=== PATIENT | female | born 1940 | race Native Hawaiian/Other Pacific Islander ===

== ENCOUNTER 2018-11-16 20:44 | Inpatient (IN) | payer OTHER ==
[~2018-11-16] VITALS: Ht 157.5 cm; Wt 107.5 kg
[2018-11-16 20:59] VITALS: Ht 157.5 cm; Wt 107.5 kg
--- NOTE | 2018-11-16 21:25 | NUR ---
X-RAY COMPLETED AT BEDSIDE.
[2018-11-16 21:33] LABS: BASOPHIL % 0.5 % (0-2); PLATELET COUNT 214 x10^3mcL (130-400); RED CELL DISTRIBUTION WIDTH 13.5 % (11.5-14.5)
[2018-11-16 21:42] LABS: CALCIUM 9.2 mg/dL (8.5-10.1); CARBON DIOXIDE 25.9 mmol/L (21-32); CHLORIDE SERUM 102 mmol/L (98-107); CREATININE SERUM 3.1 mg/dL (0.6-1.0); GLUCOSE SERUM 255 mg/dL (74-106); SODIUM SERUM 138 mmol/L (136-145)
--- NOTE | 2018-11-16 21:45 | NUR ---
PT AWARE OF NEEDED URINE SPECIMEN.
[2018-11-16 21:59] LABS: ALBUMIN 3.3 g/dL (3.4-5.0); ALKALINE PHOSPHATASE 77 U/L (46-116); ALT/SGPT 16 U/L (14-59); AST/SGOT 17 U/L (15-37); BILIRUBIN TOTAL 0.48 mg/dL (0.20-1.00); LIPASE 275 IU/L (73-393); TOTAL PROTEIN, SERUM 7.3 g/dL (6.4-8.2)
--- NOTE | 2018-11-16 22:24 | NUR ---
ASPIRIN 325MG PO ADMINISTERED PER MD ORDER. WATER GIVEN TO PT PER PT REQUEST.
--- NOTE | 2018-11-16 22:25 | NUR ---
PT AMBULATING TO RESTROOM W/ HELP FROM DAUGHTER TO ATTEMPT TO PROVIDE URINE SPECIMEN
--- NOTE | 2018-11-16 22:37 | NUR ---
PT PLACED ON [employer]PERVISOR. BB BLOCK NOTED. MD MADE AWARE. WILL CONTINUE TO MONITOR.
--- NOTE | 2018-11-16 23:13 | NUR ---
PT AAOX4, VSS, SPEAKS IN FULL CLEAR SENTENCES, BREATHING EASY AND UNLABORED. CONTINUES TO DENY CHEST PAIN AT THIS TIME. PT IN NO OBVIOUS DISTRESS. WILL CONTINUE TO MONITOR.
--- NOTE | 2018-11-16 23:57 | NUR ---
PT ADMITTED. REPORT CALLED TO JIA BOB. OPPORTUNITY GIVEN TO ASK QUESTIONS. PT BEING TRANSPORTED TO FLOOR BY LISBETH.
[2018-11-17] MEDS ORDERED: PRAVASTATIN SOD40 M1 PO
[2018-11-17] MEDS ORDERED: ISOSORBIDE MONO30 MG PO
[2018-11-17] MEDS ORDERED: LASIX20 MG PO (00:01)
[2018-11-17] MEDS ORDERED: HYDRALAZINE HCL25 MG PO (00:01)
[2018-11-17] MEDS ORDERED: METOPROLOL SUC200 M2 PO (00:01)
[2018-11-17] MEDS ORDERED: NOVOLOG FLEX100 U/M1 SC (00:02)
[2018-11-17] MEDS ORDERED: ELIQUIS5 MG PO (00:02)
[2018-11-17] MEDS ORDERED: ASPIR 8181 MG PO (00:02)
[2018-11-17] MEDS ORDERED: LANTUS SOLOS100 U/M1 SQ (00:03)
[2018-11-17] MEDS ORDERED: LOVAZA1 G1 (00:03)
--- NOTE | 2018-11-17 00:07 | NUR ---
PT ADMITTED (TELE, ROOM#[id number]). PT BEING TRANSPORTED TO FLOOR BY RN.
[2018-11-17 00:33] VITALS: BP 169/90
[2018-11-17 00:35] LABS: MAGNESIUM 1.9 mg/dL (1.8-2.4)
[2018-11-17 00:40] LABS: CHOLESTEROL/HDL RATIO 1.8
--- NOTE | 2018-11-17 01:06 | NUR ---
RECEIVED PT FROM ER, PT ADMIT FOR RENAL FAILURE, ELEVATED TROPONIN, PT IS A/O X4, VERBAL RESPONSIVE, ABLE TO TELL WHAT SHE NEEDS. LUNG SOUND CLEAR BILATERAL, NO COUGH, NO SOB, PT IS ON TELE 15, A.FIB, DENY ANY CHEST PAIN OR DISCOMFORT, BOWEL SOUND PRESENT ALL 4 QUADRANTS, NO DISTENTION, NO TENDER. PEDAL PULSE PRESENT BOTH FEET, NO EDEMA, IV AT RIGHT HAND, NO LEAKING, NO INFILTRATION. ALL ADLS ASSIST, ALL NEED MET, CALL LIGHT IN REACH, WILL CONTINUE TO MONITOR.
[2018-11-17 01:45] LABS: microscopic required? YES; urine erythrocyte NEGATIVE (NEGATIVE)
[2018-11-17 01:58] LABS: AMPHETAMINE QUAL UR NONE DETECTED (See below)
[2018-11-17 05:08] VITALS: BP 123/69
[2018-11-17 06:34] LABS: BASOPHIL % 0.6 % (0-2); PLATELET COUNT 193 x10^3mcL (130-400); RED CELL DISTRIBUTION WIDTH 13.4 % (11.5-14.5)
--- NOTE | 2018-11-17 06:52 | NUR ---
PT SLEPT WELL DURING SHIFT. NO SOB ON ROOM AIR. LEFT FLANK PAIN TOLERABLE. REFUSED PAIN MEDICATION. NO DISTRESS NOTED. SAFETY MEASURES MAINTAINED. CALL LIGHT WITHIN REACH. DAUGHTER AT BEDSIDE. WILL ENDORSE CONTINUITY OF CARE TO ONCOMING RN.
--- NOTE | 2018-11-17 08:00 | NUR ---
SHIFT ASSESSMENT DONE. PAITENT A/A/OX4; CLEAR SPEECH. TELE#15; A FIB; HR 80'S TO 90'S. DENIED SIM PAIN. BREATHING SOUND CLEAR ALIE. NO SOB ON RA. IVF OF NS 100CC/HR. IV SITE TO R HAND INTACT. LT MASTECTOMY. STATED LAST BM ON 11/15. TOLERATED CCHO DIET BREAKFST, NO N/V. OBESITY. TRACE EDEMA TO LLE. DENIED PAIN. CALL IN REACH. FAMILY IN ROOM.
[2018-11-17 09:44] VITALS: BP 163/90
--- NOTE | 2018-11-17 09:45 | NUR ---
STATED NO BM X2 DAY. ORDER OF MILALAX PO GIVEN. PATIENT REFUSED DULCOLAX SUPP.
[2018-11-17 10:13] LABS: CARBON DIOXIDE 26.2 mmol/L (21-32); CHLORIDE SERUM 103 mmol/L (98-107); CREATININE SERUM 3.1 mg/dL (0.6-1.0); GLUCOSE SERUM 202 mg/dL (74-106); PHOSPHOROUS 4.4 mg/dL (2.5-4.9); POTASSIUM SERUM 4.4 mmol/L (3.5-5.1); SODIUM SERUM 140 mmol/L (136-145)
--- NOTE | 2018-11-17 10:16 | NUR ---
ECHOCARDIOGRAM PENDING-IN BATHROOM
[2018-11-17 12:51] VITALS: BP 145/83
--- NOTE | 2018-11-17 15:38 | NUR ---
DR ASHRAF CAME TO SEE PATIENT. NEW ORDER WRITTEN.
[2018-11-17 18:17] VITALS: BP 109/57
--- NOTE | 2018-11-17 19:00 | NUR ---
CONDITION STABLE. B/P 109/57. DENIED CHEST PAIN AND ANY OTHER PAIN. WOULD BE NPO FOR NM STRESS TEST TOMORROW. VOID X3 VIA BRP. NO BM THIS SHIFT. ENDORSED CARE TO NOC NURSE.
--- NOTE | 2018-11-17 19:35 | NUR ---
RECEIVED REPORT FROM DAY SHIFT RN. PT RESTING IN BED. AA&O X4. NO SOB ON ROOM AIR. NO C/O PAIN. NO DISTRESS NOTED. IV TO RIGHT PARTHD, INTACT. SAFETY MEASURES IN PLACE. BED IN LOWEST POSITION. SIDE RAILS UP X2. INSTRUCTED PT TO USE THE CALL LIGHT FOR ASSISTANCE. CALL LIGHT WITHIN REACH. FAMILY AT BEDSIDE.
--- NOTE | 2018-11-17 20:26 | NUR ---
PT C/O CRAMPING PAIN TO L FLANK 10/03. TYLENOL GIVEN.
[2018-11-17 21:39] VITALS: BP 132/65
--- NOTE | 2018-11-18 03:00 | NUR ---
PT RESTING WITH EYES CLOSED. NO RESP DISTRESS. NO FACIAL GRIMACING. CALL LIGHT WITHIN REACH. GRANDDAUGHTER AT BEDSIDE.
[2018-11-18 05:19] VITALS: BP 147/93
--- NOTE | 2018-11-18 06:46 | NUR ---
PT SLEPT AT LONG INTERVALS. NO SOB ON ROOM AIR. NO C/O PAIN. NO ACUTE DISTRESS NOTED. SAFETY MEASURES MAINTAINED. ALL NEEDS ATTENDED TO. NPO SINCE MIDNIGHT FOR STRESS TEST TODAY AT 1100. CALL LIGHT WITHIN REACH. GRANDDAUGHTER AT BEDSIDE. WILL ENDORSE CONTINUITY OF CARE TO ONCOMING RN.
[2018-11-18 07:34] LABS: CALCIUM 9.4 mg/dL (8.5-10.1); CARBON DIOXIDE 23.6 mmol/L (21-32); CHLORIDE SERUM 104 mmol/L (98-107); CREATININE SERUM 2.8 mg/dL (0.6-1.0); GLUCOSE SERUM 178 mg/dL (74-106); MAGNESIUM 2.1 mg/dL (1.8-2.4); PHOSPHOROUS 4.5 mg/dL (2.5-4.9); SODIUM SERUM 139 mmol/L (136-145)
[2018-11-18 08:10] VITALS: BP 146/79
[2018-11-18 08:17] VITALS: BP 171/81
--- NOTE | 2018-11-18 09:59 | NUR ---
FRIENDS VISITING. PATIENT WITH NO COMPLAINTS.
[2018-11-18 10:05] LABS: BASOPHIL % 0.4 % (0-2); PLATELET COUNT 184 x10^3mcL (130-400); RED CELL DISTRIBUTION WIDTH 13.4 % (11.5-14.5)
--- NOTE | 2018-11-18 11:42 | NUR ---
OFF FLOOR FOR LEXISCAN.
--- NOTE | 2018-11-18 11:48 | NUR ---
LEXISCAN STRESS TEST DONE
[2018-11-18 12:47] VITALS: BP 145/81
[2018-11-18 14:15] VITALS: BP 145/81
--- NOTE | 2018-11-18 15:01 | NUR ---
Initial Nutrition Assessment: (-) ZINA MENDEZ 78F Dx: Renal Failure, elevated troponin PMHx: Afib, DM, HTN, CKD4, Breast cancer s/p L mastectomy PSHX: Cholecystectomy (2008), L Mastectomy (>10yrs) Labs: BG 178 H, BUN 48 H, Cr 2.8 H, Alb 3.3 L, Trop 0.122 H, BNP 370.87 H, A1c 8.2 H, PTT 30.6 H Meds: Apresoline, Colace, Eliquis, Humulin, Lasix, Lipitor, Miralax, Zofran Diet: 2gm Na PO intake since admission: >75% Ht: 62in Wt: 237# BMI: 43.3 Bed scale: 234.8# IBW: 110# %IBW: 215% UBW: 230# Age: 78 Food Allergies: NKFA Skin: Derik: 23 Edema: None noted GI: Last BM: 11/15 Note (11/18): Noted pt on Lasix regimen - expected wt fluctuation(s). Visited pt bedside, states she has good appetite and PO, takes insulin at home, and checks BG 3x/day. Pt states visiting from [place] w/ [facility] for family reunion, and ended up here. Pt states has never received diet education on diabetes or any kind of kidney disease. Pt agreeable to receiving diet education and resource(s). Returned to pt's room to give education, asleep at this time, non-responsive - left DM & CKD handout on pt's bedside w/ RD extension and contact information. Problem with: N/V/D/C: Constipation Problems with: Chewing: No Swallowing: No Current appetite: Good Recent wt change: No %wt change: No Vitamin/Supplement use: Centrum Special diet at home: Regular Physical activity: N/A Nutrition education given (specify specific nutrition education and handout given): NCM Diabetes & Chronic Kidney Disease Stages 1 Through 4: Nutrition Guidelines Food-drug interactions? Education given? NCM Diabetes & Chronic Kidney Disease Stages 1 Through 4: Nutrition Guidelines Estimated Nutritional Needs Based on adjusted body weight (64.4 kg) Energy: 5115-1184 kcal/day (35-40 kcal/kg for moderate weight loss) Protein: 97-129 g/day (1.5-2.0 g/kg for moderate wegith loss) Fluid: 3328-0776 mL/day (1 mL/kcal) or per MD Nutrition Diagnosis: 1. Altered nutrient-related lab values r/t renal failure, DM, obesity AEB elevated BG, A1c, BUN, and Cr. 2. Food- and nutrition-related knowledge deficit r/t lack of prior nutrition-related education regarding a DM/CKD diet AEB need for DM2 & CKD education and handout. Intervention 1. Change diet order to Renal diet Monitor/Evaluate Goal: PO intake at least 75% of estimated needs Monitor: PO intake, Labs, GI function F/U in 3-5 days as moderate risk 11/21-11/23
--- NOTE | 2018-11-18 15:01 | NUR ---
Recommendations: 1. Change diet order to Renal diet
[2018-11-18 16:03] VITALS: BP 172/107
--- NOTE | 2018-11-18 16:18 | NUR ---
DISCHARGE TEACHINGS DONE. DENIES ANY DISCOMFORT
== END 2018-11-18 17:04 | disposition home or self-care (01) | DRG 280 ==
LOC: ED 20:44 → DU 23:12
PROVIDERS: Emergency Medicine; ADMIT General Practice
DX: I21.A1 Myocardial infarction type 2 (principal); N17.0 Acute kidney failure with tubular necrosis; N18.4 Chronic kidney disease, stage 4 (severe); Z68.41 Body mass index [BMI] 40.0-44.9, adult; D68.69 Other thrombophilia; I12.9 Hypertensive chronic kidney disease with stage 1 through stage 4 chronic kidney disease, or unspecified chronic kidney disease; I25.10 Atherosclerotic heart disease of native coronary artery without angina pectoris; E11.22 Type 2 diabetes mellitus with diabetic chronic kidney disease; I48.2 Chronic atrial fibrillation; E78.5 Hyperlipidemia, unspecified; Z79.01 Long term (current) use of anticoagulants; Z85.3 Personal history of malignant neoplasm of breast; Z79.84 Long term (current) use of oral hypoglycemic drugs
CPT/HCPCS: 82962; 83880; A9500; G0378; J2270; J2405; J2785; J7030; Q0092